=== PATIENT | male | born 1940 ===

== ENCOUNTER 2024-04-29 13:16 | Outpatient (CLI) | payer OTHER, SELFPAY ==
--- NOTE | ~2024-04-29 | MR_ITS ---
EXAMINATION: MR shoulder RT wo/w con DATE: 04/29/2024 14:17 INDICATION: Subacromial impingement at the right shoulder TECHNIQUE: Magnetic resonance imaging (MRI) of the right shoulder was performed without and with 18 m L Multihance intravenous contrast. Sequences included axial PD-weighted FS FSE, axial T1-weighted FS FSE, coronal oblique PD-weighted FS FSE, coronal oblique T2-weighted FS FSE, sagittal PD-weighted FS FSE, sagittal T1-weighted SE. And postcontrast axial, sagittal and coronal T1-weighted FS FSE. COMPARISON: None. FINDINGS: Coracoacromial arch: The acromion undersurface is curved in morphology (type II). The coracoacromial ligament is normal. S evere acromioclavicular osteoarthritis. Rotator cuff: There is a full-thickness tear extending 1.5 cm AP along the superior facet footplate of the supraspi natus tendon. The tear margin is retracted 2-2.5 cm medial from the footplate with there is moderate tendinopathy extending an additional 2-2.5 cm medially from the tear margin. Mild infraspinatus tendi nopathy without tear. The teres minor tendon is normal. The rotator cuff tear extends anteriorly acro ss the rotator cuff interval to involve the cephalad half of the lesser tuberosity footplate of the s ubscapularis tendon with 2.5 cm medial retraction of the tear margin. The caudal most portion of the tendon and the muscular insertion of the subscapularis remain intact. There is medial retraction and fatty atrophy of the subscapularis muscle belly. Biceps tendon, glenoid labrum and glenohumeral cartilage: Mild tendinopathy without tear of the long head biceps tendon which is partially subluxed across the medial rim of the cephalad aspect of the intertubercular groove and across the subscapularis tendon t ear defect. There is degeneration of the inferior glenoid labrum with small tear at the chondral labr al junction at the 6:00 position. Remainder of the glenoid labrum is normal. Small region of deep cho ndral ulceration along the caudal rim of the glenoid. Additional partial-thickness chondral ulceratio n along the superolateral and posterior margins of the humeral head. Tiny marginal ossified swelling the inferomedial aspect of the humeral head. Fluid: Moderate-sized glenohumeral joint effusion with small amount of fluid extending through the full-thic kness rotator cuff tear into the subacromial/subdeltoid bursa. There is enhancing synovitis in the re cess of the glenohumeral joint space but no definitive loose osteochondral bodies. Bones: Bone alignment is normal. No fracture or pathologic marrow replacing process. Cystic changes at the g reater tuberosity likely related to chronic rotator cuff disease. Additional cystic change at the sup erior glenoid underlying the footplate of the biceps labral complex. Small normal-sized right axilla ry lymph node. No abnormally enhancing lesions identified. IMPRESSION: 1. Moderate rotator cuff tendinopathy with full-thickness tear along the superior facet footplate of the supraspinatus tendon and involving the cephalad half of the lesser tuberosity footplate of the sun bscapularis tendon. 2. 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 3. Severe acromioclavicular osteoarthritis. Reviewed, dictated and finalized at location A. [employer] IMPRESSION: 1. Moderate rotator cuff tendinopathy with full-thickness tear along the superi or facet footplate of the supraspinatus tendon and involving the cephalad half of the lesser tuberosity footplate of the subscapularis tendon. 2. Mild glenohumeral osteoarthritis with degenerative tearing at the inferior g lenoid. 3. Severe acromioclavicular osteoarthritis.
== END 2024-04-29 13:17 | disposition home or self-care (01) ==
LOC: MICIMG 13:20
PROVIDERS: PCP Physician Assistant; Visit Provider Physician Assistant
DX: M77.8 Other enthesopathies, not elsewhere classified (principal); S46.811A Strain of other muscles, fascia and tendons at shoulder and upper arm level, right arm, initial encounter; S43.431A Superior glenoid labrum lesion of right shoulder, initial encounter; M19.011 Primary osteoarthritis, right shoulder; X58.XXXA Exposure to other specified factors, initial encounter
CPT/HCPCS: 73223; A9577